=== PATIENT | male | born 1955 | race Caucasian/White ===

== ENCOUNTER 2021-11-20 20:08 | Emergency (ER) | payer MEDICARE ==
[2021-11-20 21:00] LABS: BASOPHIL 0.7 % (0-2); EOSINOPHIL 4.4 % (0-7); HCT 41.4 % (42.0-52.0); HGB 14.6 g/dl (13.2-18.0); LYMPHOCYTE 48.5 % (15-48); MCH 31.1 pg (25.0-31.0); MCHC 35.3 g/dL (32.0-36.0); MCV 88.1 fL (78.0-100.0); MONOCYTE 13.6 % (0-12); MPV 9.4 fL (6.0-9.5); NEUTROPHIL 32.6 % (41-80); NRBC 0; PLT 347 K/uL (150-400); RDW 13.6 % (11.5-14.0); WBC 9.2 K/uL (4.0-10.5)
[2021-11-20 21:12] LABS: ALBUMIN 3.6 g/dL (3.4-5.0); BILIRUBIN - TOTAL 0.3 mg/dL (0.2-1.0); BUN/CREAT RATIO (CALC) 21.6 RATIO; CREATININE 0.88 mg/dL (0.67-1.17); GLOBULIN (CALCULATION) 3.8 g/dL; POTASSIUM 3.6 mmol/L (3.5-5.1); TOTAL PROTEIN 7.4 g/dL (6.4-8.2)
[2021-11-20 22:11] LABS: BILIRUBIN NEGATIVE (NEGATIVE); BLOOD TRACE-INTACT Ery/uL (NEGATIVE); CLARITY CLEAR (CLEAR); COLOR YELLOW (YELLOW); GLUCOSE (U) NORMAL (NORMAL); LEUKOCYTES NEGATIVE Leu/uL (NEGATIVE); NITRITE NEGATIVE (NEGATIVE); PROTEIN NEGATIVE (NEGATIVE); UROBILINOGEN 0.2 mg/dL (0.2-1.0); pH 7.5 (5.0-9.0)
[2021-11-20 22:17] LABS: BACTERIA TRACE; SQUAMOUS EPITHELIAL CELLS RARE
[2021-11-20 22:18] LABS: AMORPHOUS URATES CRYSTALS LARGE
[2021-11-20 22:50] LABS: CORONAVIRUS 2019 SARS-COV-2 NEGATIVE (NEGATIVE); INFLUENZA A NAA NEGATIVE (NEGATIVE)
[2021-11-21] MEDS ORDERED: ONDANSETRON ODT4 MG PO (01:43)
== END 2021-11-21 02:21 | disposition home or self-care (01) ==
LOC: FER 20:08
PROVIDERS: Emergency Medicine
DX: R10.9 Unspecified abdominal pain (principal); R11.2 Nausea with vomiting, unspecified; I10 Essential (primary) hypertension; E78.5 Hyperlipidemia, unspecified; G40.909 Epilepsy, unspecified, not intractable, without status epilepticus; Z20.822 Contact with and (suspected) exposure to COVID-19; Z79.899 Other long term (current) drug therapy
CPT/HCPCS: 36415; 80053; 81001; 83690; 84145; 84484; 85025; 93005; J1170; J1885; J2405; J2550; J7030; U0002